=== PATIENT | male | born 1985 | race Caucasian/White ===

== ENCOUNTER 2018-06-17 20:50 | Emergency (ER) | payer OTHER ==
--- NOTE | 2018-06-17 21:38 | ED.ADGEN ---
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 COMMENTS; Start 06/18/18 at 00:15; Stop 06/20/18 at 00:14 Succinylcholine Chloride (Anectine) 200 mg 1X ONCE IV Last administered on 01/27at 00:05; Admin Dose 200 MG; Start 06/18/18 at 00:30; Stop 06/18/18 at 00: 50; Status DC Lorazepam (Ativan) 2 mg 1X ONCE IV Last administered on 06/18/18at 00:15; Admin Dose 2 MG; Start 06/18/18 at 00:15; Stop 06/18/18 at 00:16; Status DC Propofol 100 ml @ As Directed STK-MED ONCE IV ; Start 06/18/18 at 03:20; Stop 06/18/18 at 03:21; Status DC JOELLE HUYNH MD Jun 17, 2018 21:38
[2018-06-17] MEDS ORDERED: MVI, ADULT NO.4 WITH VIT K 10 ML, FOLIC ACID SYRINGE for ER 1 MG, THIAMINE INJ 100 MG i... IV ONE ×4 (21:45)
[2018-06-17] MEDS ORDERED: IV RINGERS SOLUTION,LACTATED 1,000 ML IV SCH (21:45)
[2018-06-17] MEDS ORDERED: PROPOFOL 10,000 MCG/ML (20ML) VIAL IV ONE (21:45)
[2018-06-17] MEDS ORDERED: BENZOCAINE ONE 20% MUCOSAL SPRAY. (21:53)
[2018-06-17 21:57] LABS: BASO # 0.1 x10^3/uL (0.0-0.2); BASO % 1 % (0-3); EOS # 0.1 x10^3/uL (0.0-0.7); EOS % 2 % (0-3); HEMATOCRIT 43.7 % (39.0-53.0); HEMOGLOBIN 15.1 g/dL (13.0-17.5); LYMPH # 3.3 x10^3/uL (1.0-4.8); LYMPH % 44 % (24-48); MEAN CORPUSCULAR HEMOGLOBIN 31 pg (25-35); MEAN CORPUSCULAR HGB CONC 35 g/dL (31-37); MEAN CORPUSCULAR VOLUME 89 fL (79-100); MONO # 0.6 x10^3/uL (0.0-1.1); MONO % 8 % (0-9); NEUT # 3.5 x10^3uL (1.8-7.7); NEUT % 46 % (31-73); PLATELET COUNT 244 x10^3/uL (140-400); RED BLOOD COUNT 4.93 x10^6/uL (4.30-5.70); RED CELL DISTRIBUTION WIDTH 13.2 % (11.5-14.5); WHITE BLOOD COUNT 7.6 x10^3/uL (4.0-11.0)
[2018-06-17 22:10] LABS: BACTERIA,URINE 0 /HPF (0-FEW); BILIRUBIN,URINE NEG (NEG); CLARITY,URINE CLEAR; COLOR,URINE YELLOW; GLUCOSE,URINE NEG (NEG); NITRITE,URINE NEG (NEG); RBC,URINE 0 /HPF (0-2); SQUAMOUS EPITHELIAL CELL,UR OCC /LPF; UROBILINOGEN,URINE 0.2 mg/dL (0.2 mg/dL); WBC,URINE 0 /HPF (0-4)
[2018-06-17 22:23] LABS: ALBUMIN 4.5 g/dL (3.4-5.0); CALCIUM 9.3 mg/dL (8.5-10.1); DIRECT BILIRUBIN 0.2 mg/dL (0.0-0.2); GFR 86.6; MAGNESIUM 2.4 mg/dL (1.8-2.4); POTASSIUM 3.8 mmol/L (3.5-5.1); TOTAL BILIRUBIN 0.6 mg/dL (0.2-1.0)
[2018-06-17] MEDS ORDERED: MIDAZOLAM HCL PF 5 MG/5 ML VIAL. ONE (22:30)
[2018-06-17] MEDS ORDERED: ETOMIDATE 40 MG/20 ML VIAL. IV ONE (22:30)
[2018-06-17] MEDS ORDERED: KETAMINE HCL 500 MG/10 ML VIAL. ONE (22:30)
[2018-06-17] MEDS ORDERED: THIAMINE IM 200 MG/2 ML VIAL. IM ONE (22:38)
[2018-06-17] MEDS ORDERED: FOLIC ACID 5 MG/ML SYRINGE for ER IV ONE (22:38)
[2018-06-17] MEDS ORDERED: MVI, ADULT NO.4 WITH VIT K 10 ML VIAL IV ONE (22:38)
[2018-06-17 22:44] LABS: BARBITURATES NEG (NEG); BENZODIAZEPINES NEG (NEG); CANNABINOIDS NEG (NEG); COCAINE NEG (NEG); METHADONE NEG (NEG); OPIATES NEG (NEG); PHENCYCLIDINE NEG (NEG)
[2018-06-17 22:45] LABS: AMPHETAMINE/METHAMPHETAMINE NEG (NEG)
[2018-06-17 23:08] LABS: BGAS PH 7.43 (7.35-7.46)
[2018-06-17 23:10] LABS: SEDIMENTATION RATE 1 (0-15)
[2018-06-17] MEDS ORDERED: IV RINGERS SOLUTION,LACTATED 1,000 ML IV ONE ×2 (23:15→23:30)
[2018-06-17 23:24] LABS: ACETAMIN < 2 mcg/mL (10-30); SALIC 0.8 mg/dL (2.8-20.0)
[2018-06-17] MEDS ORDERED: DIPHTH,PERTUSS(ACELL),TET TOX 0.5 ML DISP.SYRIN. VAX IM ONE (23:30)
[2018-06-17] MEDS ORDERED: BENZOCAINE ONE 20% MUCOSAL SPRAY. MM (23:30)
--- NOTE | 2018-06-17 23:37 | RAD ---
Indication:Post intubation TECHNIQUE:Portable AP chest X-ray COMPARISON:None FINDINGS: Tip of the ET tube is seen approximately 5.4 cm above the level of omega and is in appropriate position. Tip of the NG tube is seen in the gastric cardia. Heart is normal in size. Lungs are clear. No pneumothorax or pleural effusion. Visualized bony thorax within normal limits. IMPRESSION: No acute pulmonary process. Electronically signed by: Tomy Zarco DO (06/17/2018 11:34 PM) [facility]
[2018-06-17] MEDS ORDERED: SUCCINYLCHOLINE 200 MG/10 ML VIAL. ONE (23:57)
[2018-06-18] MEDS ORDERED: IOHEXOL 350 MG/ML 100 ML VIAL. IV ONE
[2018-06-18] MEDS ORDERED: CONTRAST GIVEN MC PRN (00:15)
[2018-06-18] MEDS ORDERED: SUCCINYLCHOLINE 200 MG/10 ML VIAL. IV ONE (00:30)
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
[2018-06-18 03:11] VITALS: BP 107/60
[2018-06-18] MEDS ORDERED: PROPOFOL 100 ML IV ONE (03:20)
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
--- NOTE | 2018-06-18 21:27 | EKG ---
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
== END 2018-06-18 03:37 | disposition short-term general hospital (02) ==
LOC: ER 20:50 → EEVIPCON 20:50 → ER 06-18 03:37
DX: R41.82 Altered mental status, unspecified (principal); R74.0 Nonspecific elevation of levels of transaminase and lactic acid dehydrogenase [LDH]; S22.32XA Fracture of one rib, left side, initial encounter for closed fracture; S01.512A Laceration without foreign body of oral cavity, initial encounter; S01.511A Laceration without foreign body of lip, initial encounter; S60.222A Contusion of left hand, initial encounter; S60.221A Contusion of right hand, initial encounter; M19.021 Primary osteoarthritis, right elbow; F90.9 Attention-deficit hyperactivity disorder, unspecified type; F17.210 Nicotine dependence, cigarettes, uncomplicated; F10.129 Alcohol abuse with intoxication, unspecified; Z88.0 Allergy status to penicillin; Y04.0XXA Assault by unarmed brawl or fight, initial encounter; Y93.89 Activity, other specified; Y92.148 Other place in prison as the place of occurrence of the external cause; Y99.8 Other external cause status; Y90.7 Blood alcohol level of 200-239 mg/100 ml
CPT/HCPCS: 31500; 36415; 36600; 43752; 51702; 70450; 70486; 71045; 71275; 72125; 73070; 80048; 80076; 80307; 81001; 82553; 82803; 82947; 83605; 83690; 83735; 83880; 84443; 84484; 85025; 85379; 85610; 85651; 85730; 90471; 90715; 93005; 96361; 96365; 96375; 99285; G0480; G6039; J0330; J2060; J2250; J2704; J3490; J7120; Q9967; 80329; 82003